=== PATIENT | female | born 1970 | race Caucasian/White ===

== ENCOUNTER 2020-02-24 15:09 | Emergency (ER) | payer OTHER ==
[2020-02-24] MEDS ORDERED: Adacel Vial IM ONE ×2 (15:54→16:19)
[2020-02-24] MEDS ORDERED: BACIGUENT PACKET TP ONE (15:54)
--- NOTE | 2020-02-24 15:58 | ERPHSYRPT ---
- History of Present Illness Time Seen by Provider: 02/24/20 15:23 Source: patient Exam Limitations: no limitations Patient Subjective Stated Complaint: pt here a fall on concrete today, she states she rolled her ankle and fell, co pain to left ankle Triage Nursing Assessment: pt alert, arrived per wc, face mask in place, resp easy,skin w/d/p. has abrasions to both knees, swelling to left ankle, ppp, foot warm Physician History: 50 years old female presented in the ER with chief complaint of left ankle pain sudden onset almost an hour ago after she tripped on sidewalk, twisted her ankle and fell on her knees causing abrasion on both knees. She was able to get up and ambulate but worsening pain sharp shooting moderate intensity, aggravated with weightbearing and ambulation and better with being still and applying ice. Gradually increasing swelling on the lateral aspect of ankle. No pain in the foot. No difficulty movements of knees. Unsure about tetanus status. Method of Injury: twisted Occurred: hours ago (1) Quality: constant Severity of Pain-Max: moderate Severity of Pain-Current: moderate Lower Extremities Pain: ankle: left Modifying Factors: Improves With: immobilization, movement Associated Symptoms: none Allergies/Adverse Reactions: acetaminophen [From [facility]] Allergy (Verified 02/24/20 15:22) hydrocodone [From [facility]] Allergy (Verified 02/24/20 15:22) levofloxacin [From Levaquin] Allergy (Verified 02/24/20 15:22) oxycodone Allergy (Verified 02/24/20 15:22) Sulfa (Sulfonamide Antibiotics) Allergy (Verified 02/24/20 15:22) tramadol [From Ultram] Allergy (Verified 02/24/20 15:22) Home Medications: Levothyroxine Sodium 75 Mcg [Synthroid 75 Mcg] 1 ea DAILY 02/24/20 [History] Omeprazole Magnesium [Prilosec] 10 mg PO DAILY 02/24/20 [History] Polyethylene Glycol 3350 17 gm [Miralax Powder 17GM PACKET] 1 ea DAILY 02/24/20 [History] Hx Tetanus, Diphtheria Vaccination/Date Given: No Hx Influenza Vaccination/Date Given: No Hx Pneumococcal Vaccination/Date Given: No Immunizations Up to Date: Yes Travel Risk - International Travel Have you traveled outside of the country in past 3 weeks: No - Coronavirus Screening Are you exhibiting any of the following symptoms?: No Close contact with a COVID-19 positive Pt in past 14-21 Days: No - Review of Systems Constitutional: No Symptoms Eyes: No Symptoms Ears, Nose, & Throat: No Symptoms Respiratory: No Symptoms Cardiac: No Symptoms Abdominal/Gastrointestinal: No Symptoms, Appetite Changes Musculoskeletal: Injury Skin: Rash, Skin Lesions Neurological: No Symptoms Psychological: No Symptoms Endocrine: No Symptoms Hematologic/Lymphatic: No Symptoms Immunological/Allergic: No Symptoms - Past Medical History Pertinent Past Medical History: Yes Endocrine Medical History: Hypothyroidism GI Medical History: GERD, Irritable Bowel - Past Surgical History Past Surgical History: Yes Gastrointestinal: Cholecystectomy Musculoskeletal: Joint Replacement Female Surgical History: Hysterectomy Other Surgical History: foot surg - Social History Smoking Status: Never smoker Exposure to second hand smoke: No Drug Use: none Patient Lives Alone: No - Female History Hx Last Menstrual Period: post Hx Now: No - Nursing Vital Signs Nursing Vital Signs: Initial Vital Signs Pulse Rate 68 02/24/20 16:35 Respiratory Rate 18 02/24/20 16:35 Blood Pressure 117/66 02/24/20 16:35 O2 Sat by Pulse Oximetry 97 02/24/20 16:35 Pain Scale Pain Intensity 6 - Physical Exam General Appearance: no apparent distress, alert Eyes, Ears, Nose, Throat Exam: normal ENT inspection, pharynx normal Neck Exam: normal inspection Cardiovascular/Respiratory Exam: normal breath sounds, regular rate/rhythm Gastrointestinal/Abdominal Exam: non-tender, soft Back Exam: normal inspection Knees Exam: bilateral knee: normal range of motion, pain, soft tissue tenderness (Superficial abrasions bilaterally intact range of motion no bony tenderness.) Ankle Exam: right ankle: non-tender, normal inspection, normal range of motion, no evidence of injury, left ankle: bone tenderness (Lateral malleolus), limited range of motion, pain, soft tissue tenderness, swelling Foot Exam: bilateral foot: non-tender, normal inspection, normal range of motion Neuro/Tendon Exam: normal sensation, normal motor functions, normal tendon functions Mental Status Exam: alert, oriented x 3, cooperative Skin Exam: normal color, warm SpO2 Interpretation: normal O2 Delivery: Room Air Ordered Tests: Active Orders 24 hr Category Date Time Status Cold Application STAT Care 02/24/20 15:16 Completed Wound Care STAT Care 02/24/20 16:26 Completed ANKLE (3 VIEWS) Stat Exams 02/24/20 15:18 Completed Medication Summary Discontinued Medications Generic Name Dose Route Start Last Admin Trade Name Alfred PRN Reason Stop Dose Admin Bacitracin Zinc 0.9 gm 02/24/20 15:54 02/24/20 16:22 Baciguent Packet TP 02/24/20 15:55 0.9 gm STAT ONE Administration Bacitracin Zinc Confirm 02/24/20 16:19 Baciguent Packet Administered 02/24/20 16:20 Dose 1 gm .ROUTE .STK-MED ONE Diphtheria/Tetanus/Acell Pertussis 0.5 ml 02/24/20 15:54 02/24/20 16:22 Adacel Vial IM 02/24/20 15:55 0.5 ml .ONCE ONE Administration Diphtheria/Tetanus/Acell Pertussis Confirm 02/24/20 16:19 Adacel Vial Administered 02/24/20 16:20 Dose 0.5 ml IM .STK-MED ONE - Progress Progress: unchanged Progress Note: 02/24/20 15:57 50 years old is evaluated for ankle pain. She has intact range of motion of both knees, has superficial abrasions, bacitracin applied and updated tetanus. Obtain x-rays left ankle which I did did not appreciate any obvious fracture dislocation. Official read is pending. I believe patient has ankle sprain, placed in Aircast and recommended taking Tylenol ibuprofen as needed. Patient is offered pain medication in here but she does not want it. Weightbearing as tolerated. Recommended outpatient Ortho clinic follow-up. Discussed signs symptoms of worsening needing return to ER which she seems understanding. Counseled pt/family regarding: diagnosis, need for follow-up, rad results - Departure Departure Disposition: Home Clinical Impression: Sprain of ankle Qualifiers: Encounter type: initial encounter Involved ligament of ankle: unspecified ligament Laterality: left Qualified Code(s): S93.402A - Sprain of unspecified ligament of left ankle, initial encounter Condition: Stable Critical Care Time: No Referrals: Provider,Unknown [Primary Care Provider] - SYDNEE BROOKS D[employer]ER OPERATOR [NON-STAFF PHY W/O PRIVILEGES] - (Call in 2 days for appointment.) Instructions: Ankle Sprain (DC) Additional Instructions: Take Tylenol/ibuprofen as needed. Follow-up with Ortho clinic for reevaluation. Weightbearing as tolerated. Return to ER for any worsening.
[2020-02-24] MEDS ORDERED: BACIGUENT PACKET ONE (16:19)
--- NOTE | 2020-02-24 16:19 | XRAY ---
Indication: Pain following fall. Comparison: None 3 view left ankle demonstrates mild soft tissue swelling and small heel spurs. No other bony, articular, or soft tissue abnormalities.
[2020-02-24 16:43] VITALS: BP 117/66; PULSE 68; O2SAT 97
== END 2020-02-24 16:36 | disposition home or self-care (01) ==
LOC: ED 15:09
DX: S93.402A Sprain of unspecified ligament of left ankle, initial encounter (principal); W01.0XXA Fall on same level from slipping, tripping and stumbling without subsequent striking against object, initial encounter; S80.212A Abrasion, left knee, initial encounter; S80.211A Abrasion, right knee, initial encounter; Z79.899 Other long term (current) drug therapy; E03.9 Hypothyroidism, unspecified
CPT/HCPCS: 73610; 90471; 90715; 99284; A9270-GY